=== PATIENT | male | born 1970 | race Caucasian/White ===

== ENCOUNTER 2016-10-03 11:40 | Emergency (ER) | payer SELFPAY ==
[~2016-10-03] VITALS: Ht 175.3 cm; Wt 86.5 kg
[2016-10-03 11:44] VITALS: Ht 175.3 cm; Wt 86.5 kg
[2016-10-03] MEDS ORDERED: LIDOCAINE 2% (MDV) 20 ML INJ INJ ONE (12:30)
--- NOTE | 2016-10-03 12:44 | ERD ---
ER Documentation Chief Complaint Date/Time DATE: 10/03/16 TIME: 12:42 Chief Complaint LEFT HAND THUMB LACERATION; PT STATES IT WAS PINCHED IN GARAGE DOOR HPI This 46-year-old male who presents to the emergency department today for a laceration that he sustained on his left hand after it was pinched in the garage door by metal springs. Denies any previous trauma, fevers or chills. He is only taking ibuprofen for the pain. ROS All systems reviewed and are negative except as per history of present illness. Medications Home Meds Active Scripts Cephalexin* (Keflex*) 500 Mg Capsule, 500 MG PO QID for 7 Days, CAP Prov:MANOJ LAWSON-C 10/03/16 Sulfamethoxazole/Trimethoprim* (Bactrim Ds* Tablet) 1 Each Tablet, 1 TAB PO BID for 7 Days, #14 TAB Prov:MANOJ LAWSONC 10/03/16 Naproxen* (Naprosyn*) 500 Mg Tablet, 500 MG PO BID Y for PAIN AND/OR INFLAMMATION, #30 TAB Prov:MANOJ LAWSONC 10/03/16 Hydrocodone/Acetaminophen ([place] 5-325 Tablet) 1 Each Tablet, 1 TAB PO Q6H Y for PAIN, #12 TAB Prov:MAONJ LAWSONC 10/03/16 PMhx/Soc Medical and Surgical Hx: pt denies Medical Hx, pt denies Surgical Hx Hx Alcohol Use: Yes Hx Substance Use: No Hx Tobacco Use: No Smoking Status: Never smoker Physical Exam Vitals Vital Signs Date Time Temp Pulse Resp B/P Pulse Ox O2 Delivery O2 Flow Rate FiO2 10/03/16 11:44 98.4 76 18 164/85 97 Physical Exam Const: NAD Head: Atraumatic Eyes: Normal Conjunctiva ENT: Normal External Ears, Nose and Mouth. Neck: Full range of motion..~ No meningismus. Resp: Clear to auscultation bilaterally Cardio: Regular rate and rhythm, no murmurs Skin: Left hand with multiple lacerations with skin avulsion MSK: Left hand with multiple lacerations with skin avulsions. Thumb with 2 cm laceration. Index finger with two 1.5 cm laceration. Middle finger with evidence of partial nail avulsion at the tip. Bleeding well controlled. Pulses 2+. Distal neurovascularly intact. Full active range of motion of all fingers. No evidence of tendon involvement. Neur: Awake and alert Psych: Normal Mood and Affect Results 24 hrs Current Medications Medications (Trade) Dose Ordered Sig/Juan Route PRN Reason Start Time Stop Time Status Last Admin Dose Admin Lidocaine (Xylocaine 2% (Mdv) 20 ml) 20 ml ONCE ONCE INJ 10/03/16 12:30 10/03/16 12:31 DC Diphtheria/ Tetanus/Acell Pertussis 0.5 ml 0.5 ml ONCE ONCE IM* 10/03/16 13:00 10/03/16 13:01 DC 10/03/16 13:04 Cefazolin Sodium (Ancef 1 Gm/50 ml (Pmx)) 50 ml @ 100 mls/hr ONCE IVPB 10/03/16 13:30 10/03/16 13:59 DC 10/03/16 13:32 DIAGNOSTIC IMAGING REPORT Patient: ALINA HERNÁNDEZ : 1970 Age: 46 Sex: M MR #: [id number] DOS: 10/03/16 0000 Ordering MD: MANOJ LAWSON PA-C Location: [facility] Room/Bed: PROCEDURE: XR Hand. CLINICAL INDICATION: Trauma. Laceration of second and third digits. TECHNIQUE: AP lateral and oblique views of the left hand were obtained. COMPARISON: No prior studies are available for comparison. FINDINGS: There is a nondisplaced tuft fracture of the third distal phalanx. Soft tissue lacerations are seen at the second and third fingers. There is no other fracture identified. Old healed fracture of the distal radius is present. 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 IMPRESSION: Nondisplaced tuft fracture of the third distal phalanx. Soft tissue lacerations of the second and third fingers. Old healed fracture of the radial metaphysis. 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 RPTAT: QQ .Jeovanny Ozuna MD, MD Date Time Electronically viewed and signed by .Jeovanny Ozuna MD, MD on 10/03/2016 12:49 .L/ CC: MANOJ LAWSON PA-C Procedures/MDM This is a right-handed 46-year-old male presents to the emergency department today for multiple left hand lacerations after cutting his hand on metal while trying to repair the garage door patient indicated he was not up-to-date on his tetanus and he thinks his tetanus is greater than 5 years ago. Patient was given a tetanus update here. The wound was cleaned in the usual sterile fashion. It explained the risks and benefits of using sutures and patient agreed to proceed. Patient tolerated the procedure well and there were no complications. I also obtained images of the left hand for foreign body or fracture given patient's physical exam Per the radiology report images of the left hand show a nondisplaced tuft fracture of the third distal phalanx. There are soft tissue laceration seen at the second and third fingers. There is no other acute fracture identified. There is an old healed fracture of the distal radius president and there is an old nonunion united fracture of the ulnar styloid. Given patient's tuft fracture I did give the patient 1 g of Ancef IV after discussing the patient with Dr. Del Real Laceration Repair by me: Anesthesia: 1% lidocaine locally and digital block thumb and second digit 8 cc in total Location: left hand; thumb, second and third digit Tendon/Joint/Nerves: No injury Foreign body: None detected after copious irrigation and exploration Technique: 17 Simple Interrupted Sutures in total Complexity: No subcutaneous sutures/mucosal repair/ edge excision Post Closure Length: 2.5 cm thumb , 1.5 cm index finger Patient's bleeding was easily controlled in the department and there is no indication of anemia. No evidence of compartment syndrome, neurologic injury, vascular injury, open joint, tendon laceration, or foreign body. Patient is appropriate for outpatient follow up. 48 hour wound check. Scar minimization instructions given. Given patient's tuft fracture the area was wrapped in Surgicel and he was placed in a metal splint on both the second and third digit. Patient is distally neurovascularly intact pre-and post splint application patient was given referral information for [facility] and instructed to go there for further evaluation. He is also instructed if he was not able to be seen there over this weekend he should return here in 48 hours for a wound check. Patient was given Bactrim and Keflex for home as well as Yale and Naprosyn. At this time the patient is stable for discharge and outpatient management. Patient should follow up with their PCP in the next 1-2 days. They may return to the emergency department sooner for any persistent or worsening of symptoms. Patient understood and agreed with the plan. Departure Diagnosis: Primary Impression: Laceration Additional Impression: Finger fracture Encounter type: initial encounter Finger: middle finger Fracture type: open Phalanx: distal Fracture alignment: nondisplaced Laterality: left Qualified Code: S62.663B - Open nondisplaced fracture of distal phalanx of left middle finger, initial encounter Condition: Fair MANOJ LAWSON PA-C Oct 03, 2016 12:44
--- NOTE | 2016-10-03 12:49 | RADRPT ---
PROCEDURE: XR Hand. CLINICAL INDICATION: Trauma. Laceration of second and third digits. TECHNIQUE: AP lateral and oblique views of the left hand were obtained. COMPARISON: No prior studies are available for comparison. FINDINGS: There is a nondisplaced tuft fracture of the third distal phalanx. Soft tissue lacerations are seen at the second and third fingers. There is no other fracture identified. Old healed fracture of th e distal radius is present. 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 IMPRESSION: Nondisplaced tuft fracture of the third distal phalanx. Soft tissue lacerations of the second and third fingers. Old healed fracture of the radial metaphysis. 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 RPTAT: QQ .Jeovanny Ozuna MD, Date Time Electronically viewed and signed by .Jeovanny Ozuna MD, on 10/03/2016 12:49 .L/
[2016-10-03] MEDS ORDERED: DIPHTH/TET/ACEL PERTUSS (ADULT) 0.5 ML VIAL IM* ONE (13:00)
[2016-10-03] MEDS ORDERED: CEFAZOLIN 1 GM/50 ML (PMX) 50 ML IVPB SCH (13:30)
[2016-10-03] MEDS ORDERED: CEPH-443 PO (14:13)
[2016-10-03] MEDS ORDERED: SULF1TAB31 PO (14:13)
[2016-10-03] MEDS ORDERED: NAPR-260 PO (14:13)
[2016-10-03] MEDS ORDERED: HYDR-906 PO (14:13)
== END 2016-10-03 15:00 | disposition home or self-care (01) ==
LOC: FTE 11:40
DX: S61.012A Laceration without foreign body of left thumb without damage to nail, initial encounter (principal); S62.663B Nondisplaced fracture of distal phalanx of left middle finger, initial encounter for open fracture; W23.0XXA Caught, crushed, jammed, or pinched between moving objects, initial encounter; Y92.59 Other trade areas as the place of occurrence of the external cause; Z23 Encounter for immunization
CPT/HCPCS: 12001; 73130; 90471; 90715; 96365; 99284; J0690

== ENCOUNTER 2016-10-05 16:47 | Emergency (ER) | payer SELFPAY ==
[~2016-10-05] VITALS: Ht 167.6 cm; Wt 86.0 kg
[~2016-10-05 16:47] MED LIST: CEPH-443 PO; HYDR-906 PO; NAPR-260 PO; SULF1TAB31 PO
[2016-10-05 16:50] VITALS: Ht 167.6 cm; Wt 86.0 kg
--- NOTE | 2016-10-05 18:40 | ERD ---
ER Documentation Chief Complaint Date/Time DATE: 10/05/16 TIME: 18:32 Chief Complaint patient here for a recheck HPI 46-year-old male present ED for wound check after a laceration of his left hand 2 days ago. Patient stated that he has no pain at the site of laceration. Denies fever or chills. ROS All systems reviewed and are negative except as per history of present illness. Medications Home Meds Active Scripts Cephalexin* (Keflex*) 500 Mg Capsule, 500 MG PO QID for 7 Days, CAP Prov:MANOJ LAWSON-C 10/03/16 Sulfamethoxazole/Trimethoprim* (Bactrim Ds* Tablet) 1 Each Tablet, 1 TAB PO BID for 7 Days, #14 TAB Prov:MANOJ LAWSON-C 10/03/16 Naproxen* (Naprosyn*) 500 Mg Tablet, 500 MG PO BID Y for PAIN AND/OR INFLAMMATION, #30 TAB Prov:MANOJ LAWSON-C 10/03/16 Hydrocodone/Acetaminophen ([place] 5-325 Tablet) 1 Each Tablet, 1 TAB PO Q6H Y for PAIN, #12 TAB Prov:MANOJ LAWSON-C 10/03/16 Allergies Allergies: Coded Allergies: No Known Allergy (Unverified , 10/05/16) PMhx/Soc Hx Alcohol Use: Yes Hx Substance Use: No Hx Tobacco Use: No Physical Exam Vitals Vital Signs Date Time Temp Pulse Resp B/P Pulse Ox O2 Delivery O2 Flow Rate FiO2 10/05/16 16:50 98.5 60 20 131/70 97 Physical Exam General: Well-developed, well-nourished, conscious and coherent, in no distress Skin: Warm and dry without rash, good texture and turgor Head: Normocephalic without evidence of trauma Eyes: Sclera and conjunctivae normal; pupils equal, round, and reactive to light; extraocular movements are intact Chest: Normal AP diameter. Good expansion without retractions. Nontender. Lungs are clear to auscultate bilaterally with good tidal volume Heart: Regular rate and rhythm. No murmur, rub, or gallops heard Extremities: Left hand lacerations show good wound healing, no periwound erythema, swelling, or exudates. Good flexion and extension of the affected digits. Neurovascularly intact. Neuro: Alert and oriented 4, GCS 15. Cranial nerves grossly intact. Motor and sensory exams nonfocal. Moves all extremities. Speech clear. Gait normal Procedures/MDM Well-appearing 46-year-old male presents the ED for wound check after laceration 2 days ago. Wound shows no evidence of infection, foreign body, neurologic injury, vascular injury, open joint or tendon laceration. Patient appropriate for outpatient follow up. Patient instructed to keep the wound clean and dry, and remove the suture a days from now. Disclaimer: Inadvertent spelling and grammatical errors are likely due to EHR/ dictation software use and do not reflect on the overall quality of patient care. Also, please note that the electronic time recorded on this note does not necessarily reflect the actual time of the patient encounter. Departure Diagnosis: Primary Impression: Follow-up examination for injury Condition: Good Patient Instructions: Wound Check, Lac F/U (No Infection) Referrals: [facility] Usted se marino hecho un examen mdico de control que le indica que no est en kiara condicin que requiera tratamiento urgente en el Departamento de Emergencia. Un estudio ms profundo y el tratamiento de nielsen condicin pueden esperar sin ningn riesgo hasta que usted sea atendida/o en el consultorio de nielsen mdico o kiara cl quynh. Es responsabilidad suya arreglar kiara tricia para el seguimiento del carol. MANEJO DE CONDICIONES NO URGENTES EN EL FUTURO 1) Si usted tiene un mdico de atencin primaria: Usted debera llamar a nielsen mdico de atencin primaria antes de venir al departamento de emergencia. Despus de las horas de consultorio, nielsen doctor o nielsen asociado/a est disponible por telfono. El mdico o enfermero de kyle en el servicio telefnico puede asesorarle por marquis medio para atender el problema, o carol contrario se puede programar kiara tricia. 2) Si usted no tiene un mdico de atencin primaria: Llame al mdico o clnica de referencia que aparece abajo rodrigo las horas de consultorio para hacer kiara tricia para que le vean. CLINICAS: [place] [address] [phone] [facility] [phone] [place] [address] [phone] [place] [address] [phone] [place] [address] [phone] [facility] [phone] [address] Additional Instructions: SUTURE REMOVAL:CONSULTE A NIELSEN MDMANUEL PARA SACAR NIELSEN PUNTOS.PARA LA KENNY 5-6 d as.EN OTRO LUGAR 7-10 zaragoza. LINDSEY RAMSEY NP Oct 05, 2016 18:40
== END 2016-10-05 18:47 | disposition home or self-care (01) ==
LOC: FTE 16:47
DX: Z48.01 Encounter for change or removal of surgical wound dressing (principal)
CPT/HCPCS: 99281

== ENCOUNTER 2016-10-15 17:12 | Emergency (ER) | payer SELFPAY ==
[~2016-10-15] VITALS: Ht 157.5 cm; Wt 76.0 kg
[2016-10-15 17:14] VITALS: Ht 157.5 cm; Wt 76.0 kg
--- NOTE | 2016-10-18 15:53 | ERD ---
ER Documentation Chief Complaint Date/Time DATE: 10/18/16 TIME: 15:49 Chief Complaint suture removal on right thumb, index HPI This is a 46-year-old male presenting to the emergency department for suture removal to right thumb and right index finger. Patient had laceration after injury on 10/03/2016 and 17 sutures were placed. Patient denies any drainage or warmth to area. No fevers or chills. Denies pain. ROS All systems reviewed and are negative except as per history of present illness. Medications Home Meds Active Scripts Cephalexin* (Keflex*) 500 Mg Capsule, 500 MG PO QID for 7 Days, CAP Prov:PROMANOJ SWAIN-C 10/03/16 Sulfamethoxazole/Trimethoprim* (Bactrim Ds* Tablet) 1 Each Tablet, 1 TAB PO BID for 7 Days, #14 TAB Prov:MANOJ LAWOSN-C 10/03/16 Naproxen* (Naprosyn*) 500 Mg Tablet, 500 MG PO BID Y for PAIN AND/OR INFLAMMATION, #30 TAB Prov:MANOJ LAWSON-C 10/03/16 Hydrocodone/Acetaminophen ([place] 5-325 Tablet) 1 Each Tablet, 1 TAB PO Q6H Y for PAIN, #12 TAB Prov:MANOJ LAWSON-C 10/03/16 Allergies Allergies: Coded Allergies: No Known Allergy (Unverified , 10/05/16) PMhx/Soc Hx Alcohol Use: Yes Hx Substance Use: No Hx Tobacco Use: No Physical Exam Vitals Vital Signs Date Time Temp Pulse Resp B/P Pulse Ox O2 Delivery O2 Flow Rate FiO2 10/15/16 17:14 98.1 70 18 137/74 99 Physical Exam Const: No acute distress Head: Atraumatic Eyes: Normal Conjunctiva ENT: Normal External Ears, Nose and Mouth. Neck: Full range of motion..~ No meningismus. Resp: Clear to auscultation bilaterally Cardio: Regular rate and rhythm, no murmurs Abd: Soft, non tender, non distended. Normal bowel sounds Skin: No petechiae or rashes Back: No midline or flank tenderness Ext: [address] Left hand lacerations show good wound healing, no surrounding erythema, warmth, swelling, or exudates. Good flexion and extension of the affected digits. Neurovascularly intact. Neur: Awake and alert Psych: Normal Mood and Affect Procedures/MDM MDM: This is a 46-year-old male resenting to emergency department for suture removal. 17 sutures removed intact from left thumb and left index finger. Suture Removal by me: Sutures removed with tweezers and scissors without incident. Wound shows no evidence of infection, foreign body, neurologic injury, vascular injury, open joint or tendon laceration. Patient instructed to return to ED for any high fever, chest pain, difficulty breathing, shortness breath, wheezing, vomiting, diarrhea, abdominal pain or any new or worsening symptoms. Patient verbalizes understanding. All questions answered at discharge. Departure Diagnosis: Primary Impression: Encounter for removal of sutures Condition: Stable Patient Instructions: Suture Removal, No Complication Referrals: [facility] YOU HAVE RECEIVED A MEDICAL SCREENING EXAM AND THE RESULTS INDICATE THAT YOU DO NOT HAVE A CONDITION THAT REQUIRES URGENT TREATMENT IN THE EMERGENCY DEPARTMENT. FURTHER EVALUATION AND TREATMENT OF YOUR CONDITION CAN WAIT UNTIL YOU ARE SEEN IN YOUR DOCTORS OFFICE WITHIN THE NEXT 1-2 DAYS. IT IS YOUR RESPONSIBILITY TO MAKE AN APPOINTMENT FOR FOLOW-UP CARE. IF YOU HAVE A PRIMARY DOCTOR --you should call your primary doctor and schedule an appointment IF YOU DO NOT HAVE A PRIMARY DOCTOR YOU CAN CALL OUR PHYSICIAN REFERRAL HOTLINE AT IF YOU CAN NOT AFFORD TO SEE A PHYSICIAN YOU CAN CHOSE FROM THE FOLLOWING [facility] [address] [facility]. [facility] [address] [facility] [address] [facility] [facility] [address] [facility] [facility] [address] [facility]. [facility]. [address] [facility]. [facility] YOU HAVE RECEIVED A MEDICAL SCREENING EXAM AND THE RESULTS INDICATE THAT YOU DO NOT HAVE A CONDITION THAT REQUIRES URGENT TREATMENT IN THE EMERGENCY DEPARTMENT. FURTHER EVALUATION AND TREATMENT OF YOUR CONDITION CAN WAIT UNTIL YOU ARE SEEN IN YOUR DOCTORS OFFICE WITHIN THE NEXT 1-2 DAYS. IT IS YOUR RESPONSIBILITY TO MAKE AN APPOINTMENT FOR FOLOW-UP CARE. IF YOU HAVE A PRIMARY DOCTOR --you should call your primary doctor and schedule and appointment IF YOU DO NOT HAVE A PRIMARY DOCTOR YOU CAN CALL OUR PHYSICIAN REFERRAL HOTLINE AT . IF YOU CAN NOT AFFORD TO SEE A PHYSICIAN YOU CAN CHOSE FROM THE FOLLOWING [facility] INSTITUTIONS: [facility] [address] [place] [address] [facility] [address] [place] [address] [facility] [address] [place] [address] Additional Instructions: Llame al doctor nomrenato harrington (Referral Sources) MAANA y linnea kiara ZAIRA PARA DENTRO DE KIARA SEMANA. Dgale a la secretaria que nosotros le instruimos hacer esta zaira.Avise o llame si acuña condicin se empeora antes de la zaira. Return to ED for any high fever, chest pain, difficulty breathing, shortness breath, wheezing, vomiting, diarrhea, abdominal pain or any new or worsening symptoms. LENA MERCER NP Oct 18, 2016 15:53
== END 2016-10-15 18:14 | disposition home or self-care (01) ==
LOC: FTE 17:12
DX: Z48.02 Encounter for removal of sutures (principal)
CPT/HCPCS: 99281